=== PATIENT | female | born 1940 | race Caucasian/White ===

== ENCOUNTER 2016-10-26 12:19 | Day surgery (SDC) | payer MEDICARE, BC ==
[2016-10-26 12:41] VITALS: RESP 16
[2016-10-26] MEDS ORDERED: TRIAMCINOLONE ACETONIDE 40 MG/ML SUS ONE (12:47)
[2016-10-26] MEDS ORDERED: LIDOCAINE HCL 1% MPF SOL ONE (12:48)
[2016-10-26] MEDS ORDERED: BUPIVACAINE HCL 0.5% MPF 10 ML SOL ONE (12:48)
[2016-10-26 13:42] VITALS: BP 154/87; PULSE 72; TEMP 98.5; O2SAT 98
== END 2016-10-26 13:53 | disposition home or self-care (01) | DRG 552 ==
LOC: SURG 12:19
PROVIDERS: ATTEND Nurse Anesthetist, Certified Registered
DX: M47.816 Spondylosis without myelopathy or radiculopathy, lumbar region (principal)
CPT/HCPCS: J2001; J3300

== ENCOUNTER 2016-11-30 13:53 | Day surgery (SDC) | payer MEDICARE, BC ==
[2016-11-30] MEDS ORDERED: BUPIVACAINE HCL 0.5% MPF 10 ML SOL ONE (14:17)
[2016-11-30] MEDS ORDERED: TRIAMCINOLONE ACETONIDE 40 MG/ML SUS ONE (14:17)
[2016-11-30 14:18] VITALS: TEMP 98.2; O2SAT 96
[2016-11-30] MEDS ORDERED: LIDOCAINE HCL 1% MPF SOL ONE (14:22)
[2016-11-30 15:11] VITALS: BP 149/79; PULSE 71; RESP 20
== END 2016-11-30 15:23 | disposition home or self-care (01) | DRG 554 ==
LOC: SURG 13:53
PROVIDERS: ATTEND Nurse Anesthetist, Certified Registered
DX: M12.88 Other specific arthropathies, not elsewhere classified, other specified site (principal)
CPT/HCPCS: J2001; J3300

== ENCOUNTER 2017-10-13 11:53 | Outpatient (CLI) | payer MEDICARE, BC ==
[2016-11-30 14:18] VITALS: O2SAT 96
== END 2017-10-13 11:54 | disposition home or self-care (01) | DRG 563 ==
LOC: CONVCARE 11:53
PROVIDERS: ATTEND Orthopaedic Surgery
DX: S66.313A Strain of extensor muscle, fascia and tendon of left middle finger at wrist and hand level, initial encounter (principal)
CPT/HCPCS: 73130

== ENCOUNTER 2018-03-23 06:54 | Day surgery (SDC) | payer MEDICARE, BC ==
[2018-03-23] MEDS ORDERED: BUPIVACAINE HCL 0.5% MPF 10 ML SOL ONE ×2 (07:45)
[2018-03-23] MEDS ORDERED: PROPOFOL 500 MG/50 ML EMU IV ONE (07:47)
[2018-03-23] MEDS ORDERED: FENTANYL 100MCG/2ML SOL ONE (07:47)
[2018-03-23] MEDS ORDERED: MIDAZOLAM 2 MG/2 ML SOL ONE (07:47)
[2018-03-23] MEDS ORDERED: LIDOCAINE HCL 2% MPF 10 ML SOL ONE (08:03)
[2018-03-23] MEDS ORDERED: KETOROLAC TROMETHAMINE 30 MG/ML SOL ONE (08:41)
[2018-03-23 10:33] VITALS: BP 144/89; PULSE 67; RESP 20; TEMP 97.3; O2SAT 96
== END 2018-03-23 10:45 | disposition home or self-care (01) | DRG 563 ==
LOC: SURG 06:54
PROVIDERS: ATTEND Orthopaedic Surgery
DX: S66.313A Strain of extensor muscle, fascia and tendon of left middle finger at wrist and hand level, initial encounter (principal)
CPT/HCPCS: J1885; J2250; J3010; A6402; J2704

== ENCOUNTER 2018-05-10 12:00 | Day surgery (SDC) | payer MEDICARE, BC ==
[2018-05-10 12:33] VITALS: O2SAT 95
[2018-05-10] MEDS ORDERED: DEXAMETHASONE SOD PHOS PF 10 MG/ML SOL IJ ONE (12:57)
[2018-05-10] MEDS ORDERED: BUPIVACAINE HCL 0.25% MPF 30 ML SOL INFIL ONE (12:59)
[2018-05-10 13:35] VITALS: BP 140/80; PULSE 59; RESP 20; TEMP 97.5
== END 2018-05-10 13:50 | disposition home or self-care (01) | DRG 552 ==
LOC: SURG 12:00
PROVIDERS: ATTEND Nurse Anesthetist, Certified Registered
DX: M51.17 Intervertebral disc disorders with radiculopathy, lumbosacral region (principal)
CPT/HCPCS: J1100

== ENCOUNTER 2018-08-23 08:24 | Day surgery (SDC) | payer MEDICARE, BC ==
[2018-08-23] MEDS ORDERED: TRIAMCINOLONE ACETONIDE 40 MG/ML SUS ONE (09:22)
[2018-08-23] MEDS ORDERED: BUPIVACAINE HCL 0.25% MPF 30 ML SOL INFIL ONE (09:22)
[2018-08-23 09:51] VITALS: PULSE 58; RESP 18; TEMP 97.4; O2SAT 95
[2018-08-23 11:33] VITALS: BP 137/78
== END 2018-08-23 10:12 | disposition home or self-care (01) | DRG 554 ==
LOC: SURG 08:24
PROVIDERS: ATTEND Nurse Anesthetist, Certified Registered
DX: M12.9 Arthropathy, unspecified (principal)
CPT/HCPCS: J3300

== ENCOUNTER 2018-10-10 09:46 | Day surgery (SDC) | payer MEDICARE, BC ==
[2018-10-10] MEDS ORDERED: TRIAMCINOLONE ACETONIDE 40 MG/ML SUS ONE (10:28)
[2018-10-10] MEDS ORDERED: LIDOCAINE HCL 1% MPF 30 SOL ONE (10:28)
[2018-10-10] MEDS ORDERED: BUPIVACAINE HCL 0.5% MPF 10 ML SOL ONE (10:28)
[2018-10-10] MEDS ORDERED: BUPIVACAINE HCL 0.25% MPF 30 ML SOL INFIL ONE (10:35)
[2018-10-10 10:44] VITALS: RESP 16
[2018-10-10 10:52] VITALS: PULSE 65
[2018-10-10 11:09] VITALS: BP 139/83; TEMP 98.8; O2SAT 97
== END 2018-10-10 11:17 | disposition home or self-care (01) | DRG 554 ==
LOC: SURG 09:46
PROVIDERS: ATTEND Nurse Anesthetist, Certified Registered
DX: M12.88 Other specific arthropathies, not elsewhere classified, other specified site (principal); M70.61 Trochanteric bursitis, right hip
CPT/HCPCS: J2001; J3300

== ENCOUNTER 2018-10-18 12:51 | Day surgery (SDC) | payer MEDICARE, BC | END 2018-10-18 15:05 | disposition home or self-care (01) | LOC: SURG 12:51 ==

== ENCOUNTER 2018-11-15 08:51 | Day surgery (SDC) | payer MEDICARE, BC ==
[2018-11-15] MEDS ORDERED: FENTANYL 100MCG/2ML SOL ONE (09:18)
[2018-11-15] MEDS ORDERED: MIDAZOLAM 2 MG/2 ML SOL ONE (09:18)
[2018-11-15] MEDS ORDERED: LIDOCAINE HCL 2% MPF 10 ML SOL ONE (09:23)
[2018-11-15] MEDS ORDERED: BUPIVACAINE HCL 0.25% MPF 30 ML SOL INFIL ONE (09:24)
[2018-11-15] MEDS ORDERED: LIDOCAINE HCL 1% MPF 30 SOL ONE (09:24)
[2018-11-15] MEDS: TRIAMCINOLONE ACETONIDE 40 MG/ML SUS ONE ×2 (10:04→10:25)
[2018-11-15 10:43] VITALS: BP 151/96; PULSE 69; RESP 20; TEMP 97.4; O2SAT 96
== END 2018-11-15 11:00 | disposition home or self-care (01) | DRG 554 ==
LOC: SURG 08:51
PROVIDERS: ATTEND Nurse Anesthetist, Certified Registered
DX: M12.88 Other specific arthropathies, not elsewhere classified, other specified site (principal)
CPT/HCPCS: J2250; J3010; J2001; J3300

== ENCOUNTER → 2019-02-20 | Day surgery (SDC) | payer MEDICARE, BC ==
[~2019-02-20] MED LIST: BUPIVACAINE HCL 0.25% MPF 30 ML SOL INFIL ONE; DEXAMETHASONE SOD PHOS PF 10 MG/ML SOL IJ ONE
[2019-02-20 14:40] VITALS: TEMP 96.9
[2019-02-20 14:52] VITALS: BP 136/87; PULSE 64; RESP 18; O2SAT 96
== END | disposition home or self-care (01) | DRG 552 ==
LOC: SURG 08:00
PROVIDERS: ATTEND Nurse Anesthetist, Certified Registered
DX: M48.062 Spinal stenosis, lumbar region with neurogenic claudication (principal)
CPT/HCPCS: J1100